=== PATIENT | male | born 1980 | race Caucasian/White ===

== ENCOUNTER 2016-09-14 | Emergency (ER) | payer BC ==
--- OUTSIDE RECORDS SUMMARY | 2016-09-14 00:20 | XMS REPORT | CCD ---
:1980 Author Name TRELLBARRERA JIMÉNEZ Shea Address [address] [facility] Unavailable [place], [place] [id number] Care Team Providers Name Role Phone RUFINO MONREAL Attending Physician Unavailable RUFINO MONREAL Er Physician 1 Unavailable Vital Signs Vital Sign Value Unit Date/Time Recent/Initial? Weight Measured 260 lbs 04/14/2015 14:31 Initial VS Height 75 in 04/14/2015 14:31 Initial VS BMI (Body Mass Index) 32.5 kg/m^2 04/14/2015 14:31 Initial VS BSA (Body Surface Area) 2.5 m^2 04/14/2015 14:31 Initial VS BP Systolic 194 mmHg 04/14/2015 14:31 Initial VS BP Diastolic 109 mmHg 04/14/2015 14:31 Initial VS Allergies Allergy Code Allergy Type Reaction Status LATEX {Clinical monitoring unavailable} 0 Allergy to substance Active No Known Drug Allergies 0 No known drug allergies Active Procedures Unknown or Not Available. History of Immunizations Unknown or Not Available. Problems Problem Code Start Date Resolved Date Status HERPETIC INFECT OF PENIS 35433 02/10/2012 Active CONTACT DERMATITIS 35780528 02/10/2012 Active DIARRHEA 16477709 02/10/2012 Active HEAVY CIGARETTE SMOKER (20-39 PER DAY) [id number] 02/10/2012 Active ADHD (ATTENTION DEFICIT HYPERACTIVITY 740360402 02/10/2012 Active DISORDER) Results Unknown or Not Available. Active Medications No Active Medications Medications Administered During Visit Unknown or Not Available. Encounters Encounter Diagnosis Diagnosis Code Start Date Sprain of unspecified site of left knee, initial encounter [id number] 04/14/2015 Social History Smoking Status Code Start Date End Date Current every day smoker [id number] Patient Decision Aids Unknown or Not Available. Discharge Instructions You were admitted to [facility] on 04/14/2015 with a principal diagnosis of Sprain of unspecified site of left knee, initial encounter. You were discharged from [facility] on 04/14/2015. Should you have any questions prior to discharge, please contact a member of your healthcare team. If you have left the hospital and have any questions, please contact your primary care physician. Chief Complaint and Reason For Visit Chief Complaint Date of Onset LT KNEE PAIN Function Status Unknown or Not Available. Plan of Care Unknown or Not Available. Referral/Transition of Care Unknown or Not Available.
--- OUTSIDE RECORDS SUMMARY | 2016-09-14 00:20 | XMS REPORT | CCD ---
:1980 Author Name MAJORBARRERA Shea Address [address] [facility] Unavailable [place], [place] [id number] Care Team Providers Name Role Phone GUILLE MCNAMARA Attending Physician Unavailable Vital Signs Unknown or Not Available. Allergies Allergy Code Allergy Type Reaction Status LATEX {Clinical monitoring unavailable} 0 Allergy to substance Active No Known Drug Allergies 0 No known drug allergies Active Procedures Unknown or Not Available. History of Immunizations Unknown or Not Available. Problems Problem Code Start Date Resolved Date Status HERPETIC INFECT OF PENIS 64754 02/10/2012 Active CONTACT DERMATITIS 89112290 02/10/2012 Active DIARRHEA 99501047 02/10/2012 Active HEAVY CIGARETTE SMOKER (20-39 PER DAY) 974759045 02/10/2012 Active ADHD (ATTENTION DEFICIT HYPERACTIVITY 596791679 02/10/2012 Active DISORDER) Results Unknown or Not Available. Active Medications Unknown or Not Available. Medications Administered During Visit Unknown or Not Available. Encounters Encounter Diagnosis Diagnosis Code Start Date Pain in left knee [id number] 04/20/2015 Social History Smoking Status Code Start Date End Date Current every day smoker [id number] Patient Decision Aids Unknown or Not Available. Discharge Instructions You were admitted to [facility] on 04/20/2015 with a principal diagnosis of Pain in left knee. You were discharged from [facility] on 04/20/2015. Should you have any questions prior to discharge, please contact a member of your healthcare team. If you have left the hospital and have any questions, please contact your primary care physician. Chief Complaint and Reason For Visit Chief Complaint Date of Onset KNEE PAIN Function Status Unknown or Not Available. Plan of Care Unknown or Not Available. Referral/Transition of Care Unknown or Not Available.
--- OUTSIDE RECORDS SUMMARY | 2016-09-14 00:20 | XMS REPORT | Continuity of Care Document ---
:1980 Author Organization [facility] ([facility]) Address [address] [place] [address] Phone [phone] Care Team Providers Name Role Phone Provider, No-Primary Care Primary Care Provider Unavailable Source Comments This disclosure is being made pursuant to the Care Everywhere program, applicable federal and state laws, and may not contain all informaitonavailable regarding this patient.[facility] ([facility]) Active Allergies and Adverse Reactions Allergen Noted Date Severity Reactions Comments Other Agent 10/21/2012 Pruritus Powder inside latex gloves Current Medications Prescription Sig. Disp. Refills Start Date End Date Status aspirin 325 mg EC Take 1 tablet 60 tablet 0 07/08/2016 Active tablet (325 mg total) by mouth daily. docusate (COLACE) 100 Take 1 capsule 60 capsule 1 07/08/2016 Active mg capsule (100 mg total) by mouth 2 times daily. hydrOXYzine pamoate Take 1-2 capsules 80 capsule 0 07/24/2016 Active (VISTARIL) 25 mg (25-50 mg total) capsule by mouth 4 times daily as needed (pain). HYDROcodone-acetaminop Take 1 tablet by 40 tablet 0 07/24/2016 Active hen 7.5-325 mg per mouth every 6 tablet hours as needed for Pain. HYDROcodone-acetaminop Take 1 tablet by 80 tablet 0 08/07/2016 Active hen 7.5-325 mg per mouth every 6 tablet hours as needed for Pain. 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 Closed fracture of unspecified part of lower end of femur 02/09/2003 Mechanical complication of internal orthopedic device, implant, and graft Most Recent Encounters Date Type Specialty Providers Description 09/10/2016 Office Visit Family Practice Pierce Charles, Subj: Upcoming Appt MD Reminder TinaDarius salgado Tracey, PA-C 09/02/2016 Hospital Encounter Emergency Medicine Dx: Closed fracture of unspecified part of lower end of femur (Primary Dx) 08/30/2016 Telephone Christiano Potts MD Chief Comp: Patient Concern 08/21/2016 Office Visit Issac Cr MD Subj: Upcoming Appt Reminder 08/07/2016 Office Visit Christiano Potts MD Dx: S/P left knee surgery (Primary Dx) 07/29/2016 Telephone Issac Cr MD Chief Comp: Medication Question 07/29/2016 Telephone Orthopaedic Malathi Lopez, Chief Comp: Other PA-C 07/24/2016 Office Visit Christiano Potts MD Dx: S/P left knee Malathi Lpoez, surgery (Primary Dx) PA-C 07/17/2016 Office Visit Issac Cr MD Chief Comp: Patient Reported Reason For Visit 07/17/2016 Office Visit Issac Walker MD Dx: Mechanical Malathi Lopez, complication of PA-C internal orthopedic device, implant, and graft, subsequent encounter (Primary Dx) 07/17/2016 Telephone Orthopaedic Malathi Lopez, PA-C 07/16/2016 Hospital Encounter Emergency Medicine Dx: Left leg pain (Primary Dx) 07/16/2016 Telephone Patient Services Libia Quinteros Chief Comp: Post-op RN Problem 07/16/2016 Nurse Triage Patient Services Libia Quinteros Chief Comp: Post -op RN Problem 07/12/2016 Telephone Tennille Lombardo Chief Comp: MD Dany Medications Refill 07/12/2016 Telephone Issac Cr MD Chief Comp: Follow-up 07/12/2016 Telephone Issac Cr MD Dx: S/P left knee surgery (Primary Dx) 07/11/2016 Telephone Orthopaedic Nieves Ortiz Chief Comp: Other RN 07/10/2016 Telephone Issac Cr MD Chief Comp: Post-op Problem 07/09/2016 Nurse Triage Ambulatory Surgery MeccaMalathi Ervin Chief Comp: Post-op K, RN Follow-up Call 07/08/2016 Pharmacy Visit 07/08/2016 Orders/Notes Issac Cr MD Dx: S/P knee surgery (Primary Dx) 07/08/2016 Surgery Ambulatory Surgery Issac Bear MD ARTHROSCOPY KNEE --Debridement and Microfracture 07/05/2016 Hospital Encounter Radiology Melody Zamora, Dx: Left knee pain 07/05/2016 Ancillary Orders Orthopedics Issac Bear MD Dx: Left knee pain (Primary Dx) 07/05/2016 Anesthesia Event Ambulatory Surgery Renny Gao CRNA 07/04/2016 Hospital Encounter Radiology Jf Diaz, Dx: Left knee pain Social History Tobacco Use Types Packs/Day Years Used Date Current Every Day Smoker Cigarettes 1 10 Smokeless Tobacco: Never Used Alcohol Use Drinks/Week oz/Week Comments Yes 1 Cans of beer 1 Standard drinks or equivalent Last Filed Vital Signs Vital Sign Reading Time Taken Blood Pressure 153/95 09/02/2016 11:02 AM INTERNET WEB[employer]STER Pulse 82 09/02/2016 11:02 AM INTERNET WE[employer] Temperature 36 C (96.8 F) 09/02/2016 11:02 AM INTERNET WEB[employer]STER Respiratory Rate 18 09/02/2016 11:02 AM INTERNET WEB[employer]STER Height 1.854 m (6' 0.99") 06/12/2016 11:58 AM INTERNET WEB[employer]STER Weight 115.9 kg (255 lb 8.2 oz) 07/08/2016 6:42 AM INTERNET WEB[employer]STER Body Mass Index 33.72 07/08/2016 6:42 AM INTERNET WEB[employer]STER Oxygen Saturation 98% 09/02/2016 11:02 AM INTERNET WEBMASTER Plan of Care Date Type Specialty Providers Description 09/17/2016 Appointment Orthopedics Issac Bear MD Subj: Upcoming Appt [address] [place] [address] [phone] (Fax) 09/18/2016 Appointment Christiano Potts MD Subj: Upcoming Appt [address] [place] [address] [phone] (Fax) 09/25/2016 Appointment Orthopaedic Abdirashid Leary MD Chief Comp: Patient [address] [place] [address] [phone] (Fax) 10/09/2016 Appointment Christiano Potts MD Chief Comp: Patient [address] [place] [address] [phone] (Fax) Health Maintenance Due Date Last Done Comments Hepatitis B Vaccine (1 of 3 - Primary Series) 1980 Tdap Vaccine 1993 Lipid Disorder Screening 2000 MMR Vaccine 2000 Td Vaccine 2000 Varicella Vaccine (1 of 2 - Adult - No Evidence of 2000 Immunity) Pneumococcal Vaccine (1 of 1 - PPSV23) 2001 Influenza Vaccine: Seasonal (#1) 01/29/2016 Procedures from Last 3 Months Procedure Name Priority Date/Time Associated Diagnosis Comments ABSTRACTED BY Routine 08/06/2016 3:40 Left knee pain Results for this BILLING STAFF - NW PM [employer] procedure are in the results section. ABSTRACTED BY Routine 07/22/2016 4:42 Left knee pain Results for this BILLING STAFF PM [employer] procedure are in the results section. ABSTRACTED BY Routine 07/16/2016 6:29 Closed fracture of Results for this BILLING STAFF - NW PM [employer] WE[employer] unspecified part of procedure are in lower end of femur the results section. HARDWARE REMOVAL 07/08/2016 8:00 Left knee pain FEMUR/HIP ADULT AM INTERNET WEBMASTER (DHS/DCS/BLADE PLATE) Case Notes C Arm; ACUFEX FAST FIX, meniscal stitcher, Fiberwire - long needles; chondral pick tray. Remvoal of distal femoral blade plate by Dr Valverde/Trauma TeamNeed the AO DHS removal tray from [facility]/cd; there is not a consent for Dr Valverde. Will need new cons ent/cd ARTHROSCOPY KNEE --Debridement and 07/08/2016 8:00 AM INTERNET WEBMASTER Left knee pain Microfracture Case Notes C Arm; ACUFEX FAST FIX, meniscal stitcher, Fiberwire - long needles; chondral pick tray. Remvoal of distal femoral blade plate by Dr Valverde/Trauma TeamNeed the AO DHS removal tray from [facility]/cd; there is not a consent for Dr Valverde. Will need new cons ent/cd Results from Last 3 Months LEFT FEMUR AP& LATERAL NOT INCL HIP (09/02/2016 11:54 AM)Only the most recent of2 resultswithin the time period is included. Impressions Findings / Impression: Negative for acute fracture or dislocation of the knee. Tracks from prior surgical hardware again noted in the distal femur with healed chronic fracture deformity. There is mild to moderate osteoarthritis of the knee joint, incompletely assessed on this nonweightbearing study. No large capsular distention. Narrative Procedure: LEFT FEMUR AP & LATERAL NOT INCL HIP Clinical Indication: Postsurgical pain Comparison: Left knee radiographs 07/16/2016, 06/12/2016 Procedure Note Deni, Incoming Imaging Results - FriSep 02, 2016 5:06 PM INTERNET WEBMASTER Procedure: LEFT FEMUR AP & LATERAL NOT INCL HIP Clinical Indication: Postsurgical pain Comparison: Left knee radiographs 07/16/2016, 06/12/2016 IMPRESSION Findings / Impression: Negative for acute fracture or dislocation of the knee. Tracks from prior surgical hardware again noted in the distal femur with healed chronic fracture deformity. There is mild to moderate osteoarthritis of the knee joint, incompletely assessed on this nonweightbearing study. No large capsular distention. OTHER PROCEDURE (08/06/2016 3:40 PM) Narrative Christiano Valverde MD 08/06/20163:40 PM Unlisted Procedure Additional Procedure Detail: Hardware removal Post-Op Procedure Note Operation/Procedure: Procedure(s) (LRB): ARTHROSCOPY KNEE --Debridement and Microfracture (Left) HARDWARE REMOVAL FEMUR/HIP ADULT (DHS/DCS/BLADE PLATE) (Left) General Information: Date: 07/08/16 Time: 0800 Location: [facility] OR Room: [facility] OR Service: Orthopaedics Log ID: [id number] Surgeon: Surgeon(s) and Role: Panel 1: * Issac Bear MD - Primary * Joy Forbes MD - Resident - Assisting * Ethan Nowak MD - Resident - Assisting Panel 2: * Christiano Valverde MD - Primary * Ethan Nowak MD - Resident - Assisting * Eliecer Duran MD - Resident - Assisting Staff Information: Scrub Nurse: Mis Marley, oncology nurse navigator Nurse: Mis Marley, BALAJI; Leena Mayfield RN Sharepoint Engineer- Scrub: Ana Lilia Mendoza Anesthesia: General Findings: No unexpected findings, see below. Blood Loss: less than 50 ml Implants: Implant Name Type Inv. Item Serial No. Steward/Stewardess Dining Room Lot No. LRB No. Used Action Blade PlateLeft 1 Explanted Screws x 6 Left 1 Explanted Specimens: * No specimens in log * Complications: None; patient tolerated the procedure well. Condition: PACU - hemodynamically stable. Return to the OR planned in the next 30 days? No Readmission planned in the next 30 days? No BMI=33.72 kg/(m^2) (as of 06/12/16) Operative Report Completion Pre-op Diagnosis: * Left knee pain [M25.562] Post-op Diagnosis: Hardware irritation left distal femur blade plate Procedure: Removal of hardware Indications/Procedure Details: Patient is a 35-year-old male who is several years out from a left distal femur osteotomy with a blade plate by Dr. Valverde. He has developed progressive left knee pain and was seen by Dr. Bear. Dr. Bear recommended a knee arthroscopy as well as hardware removal. Informed consent was obtained. He understood the risks of surgery and elected to proceed. Patient's left knee was marked. He was brought back to the operating room and Dr. eBar's team performed his diagnostic arthroscopy. This is dictated in a separate note. Following the arthroscopy, we recreated his lateral distal femoral incision. The IT band was split longitudinally in line with his incision. The vastus lateralis was elevated anteriorly. This exposed the plate. The screws were sequentially removed with the AO 4.5 mm screwdriver. The extraction device was then secured to the distal aspect of the blade plate near the blade and we carefully back-slapped blade plate. This removed partially. We then used a combination of Bella and got his in between the bone and the sideplate sequentially levered the blade out. This worked well. We took fluoroscopic views to ensure no fractures. The hardware was sent for sterilization. The wound is thoroughly irrigated. It was closed in 3 layers. A sterile soft dressing was applied. He was awakened from general anesthesia and tolerated the procedure without any complications. Disposition: Outpatient Attending Attestation: Issac Bear MD was present for the entire procedure. Ethan Nowak MD OR CASE (07/22/2016 4:42 PM) Narrative Issac Bear MD 07/22/20164:42 PM OR CASE: ARTHROSCOPY KNEE, HARDWARE REMOVAL FEMUR/HIP ADULT (DHS/DCS/BLADE PLATE) Additional Procedure Detail: Left knee arthroscopy with loose body removal and microfracture to the trochlea Post-Op Procedure Note Operation/Procedure: Procedure(s) (LRB): ARTHROSCOPY KNEE --Debridement and Microfracture (Left) HARDWARE REMOVAL FEMUR/HIP ADULT (DHS/DCS/BLADE PLATE) (Left) General Information: Date: 07/08/16 Time: 0800 Location: [facility] OR Room: [facility] OR 5 Service: Orthopaedics Log ID: [id number] Surgeon: Surgeon(s) and Role: Panel 1: * Issac Bear MD - Primary * Joy Forbes MD - Resident - Assisting * Ethan Nowak MD - Resident - Assisting Panel 2: * Christiano Valverde MD - Primary * Ethan Nowak MD - Resident - Assisting * Eliecer Duran MD - Resident - Assisting Staff Information: Scrub Nurse: Mis Marley, oncology nurse navigator Nurse: Mis Marley RN; Leena Mayfield RN Sharepoint Engineer- Scrub: Ana Lilia Mendoza Anesthesia: General Findings: No unexpected findings, see below. Blood Loss: 75 cc Implants: Implant Name Type Inv. Item Serial No. Steward/Stewardess Dining Room Lot No. LRB No. Used Action Blade PlateLeft 1 Explanted Screws x 6 Left 1 Explanted Specimens: * No specimens in log * Complications: None; patient tolerated the procedure well. Condition: PACU - hemodynamically stable. Return to the OR planned in the next 30 days? No Readmission planned in the next 30 days? No BMI=33.72 kg/(m^2) (as of 06/12/16) Operative Report Completion Pre-op Diagnosis: * Left knee pain [M25.562] Post-op Diagnosis: Hardware irritation left distal femur Procedure performed: Removal of left distal femur blade plate Indications/Procedure Details: Kevin Villalobos is a 35 y.o. male With persistent pain and increasing symptoms over last several months involving his left knee. He has a history of an bad distal femoral fracture fixed 15 years ago with a blade plate. His and are intermittent lateral sided knee pain. He began having more interarticular type knee pain. He temporarily responded to an intra-articular injection. He is off her knee arthroscopy with associated hardware removal by Dr. Valverde's team. He wished to proceed a consent form was reviewed and signed after risks and benefits were reviewed in detail. Kevin was identified in the preoperative area. His left knee was marked. He is brought to the operating room and given a general anesthetic. All pressure points were checked and padded. The left lower extremity was prepped and draped in the usual fashion and preoperative IV antibiotics were given. A multidisciplinary timeout was performed. Standard anterior portals were used. A superior medial outflow needle was placed. Diagnostic arthroscopy revealed both medial and lateral menisci to be normal. His medial compartment had normal articular cartilage. The lateral compartment had grade 2 cracking and fraying of the tibial plateau. The lateral femoral condyle was normal. There were multiple cartilaginous loose bodies floating around within the suprapatellar pouch. 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 At the central aspect of the trochlea the very edge of the blade plate could be visualized the cartilage had chipped away. All the cartilage loose bodies were debrided with the shaver. The trochlear defect was approximately 20 x 25 mm in size. Calcific cartilage layer was removed with a curette and a shaver. The edges of the lesion were stabilized. A microfracture was performed. There was good backbleeding and a lesion on turning down upon. At this point we turned the case over to Dr. Valverde and his team for hardware removal. Postop plan will be for partial weightbearing with a knee brace locked in extension for ambulation for 6 weeks. We'll allow gradual Range of motion and use of a continuous passive motion machine. We will use a protocol for a patella or trochlea microfracture procedure. Disposition: Outpatient Attending Attestation: Issac Bear MD was present for the entire procedure. Ethan Nowak MD LEFT KNEE AP& LATERAL (07/16/2016 7:30 PM) Impressions Findings / Impression: Left knee: Surgical lawrence over the lateral aspect of the lower thigh. Postprocedural changes of interval removal of plate and screws. No definite acute displaced fractures or dislocations. Mild soft tissue swelling. Minimal joint capsule distention. Left femur: Again seen are the postsurgical changes at the left lower femur. No definite acute displaced fractures or dislocations. Mild soft tissue swelling. Mild periosteal reaction is seen over the lateral aspect of the lower femur. Narrative Procedure: LEFT FEMUR AP & LATERAL NOT INCL HIP, LEFT KNEE AP & LATERAL Clinical Indication: Recent removal of hardware, now with increasing pain and swelling Comparison: Radiographs 06/12/2016 Procedure Note Deni, Incoming Imaging Results - FriJul 17, 2016 8:41 AM INTERNET WEB[employer]STER Procedure: LEFT FEMUR AP & LATERAL NOT INCL HIP, LEFT KNEE AP & LATERAL Clinical Indication: Recent removal of hardware, now with increasing pain and swelling Comparison: Radiographs 06/12/2016 IMPRESSION Findings / Impression: Left knee: Surgical lawrence over the lateral aspect of the lower thigh. Postprocedural changes of interval removal of plate and screws. No definite acute displaced fractures or dislocations. Mild soft tissue swelling. Minimal joint capsule distention. Left femur: Again seen are the postsurgical changes at the left lower femur. No definite acute displaced fractures or dislocations. Mild soft tissue swelling. Mild periosteal reaction is seen over the lateral aspect of the lower femur. OTHER PROCEDURE (07/16/2016 6:29 PM) Narrative Issac Bear MD 07/16/20166:29 PM Unlisted Procedure Additional Procedure Detail: Hardware removal left distal femur Post-Op Procedure Note Operation/Procedure: Procedure(s) (LRB): ARTHROSCOPY KNEE --Debridement and Microfracture (Left) HARDWARE REMOVAL FEMUR/HIP ADULT (DHS/DCS/BLADE PLATE) (Left) General Information: Date: 07/08/16 Time: 0800 Location: [facility] Room: [place] [address] Service: Orthopaedics Log ID: [id number] Surgeon: Surgeon(s) and Role: Panel 1: * Issac Bear MD - Primary * Joy Forbes MD - Resident - Assisting * Ethan Nowak MD - Resident - Assisting Panel 2: * Christiano Valvered MD - Primary * Ethan Nowak MD - Resident - Assisting * Eliecer Duran MD - Resident - Assisting Staff Information: Scrub Nurse: Mis Marley, oncology nurse navigator Nurse: Mis Marley RN; Leena Mayfield RN Sharepoint Engineer- Scrub: Ana Lilia Mendoza Anesthesia: General Findings: No unexpected findings, see below. Blood Loss: 75 cc Implants: Implant Name Type Inv. Item Serial No. Steward/Stewardess Dining Room Lot No. LRB No. Used Action Blade PlateLeft 1 Explanted Screws x 6 Left 1 Explanted Specimens: * No specimens in log * Complications: None; patient tolerated the procedure well. Condition: PACU - hemodynamically stable. Return to the OR planned in the next 30 days? No Readmission planned in the next 30 days? No BMI=33.72 kg/(m^2) (as of 06/12/16) Operative Report Completion Pre-op Diagnosis: * Left knee pain [M25.562] Post-op Diagnosis: Hardware irritation left distal femur blade plate Procedure: Removal of left distal femur blade plate Indications/Procedure Details: INDICATIONS: Kevin Villalobos is a 35-year-old male with left knee pain.He had a previous distal femoral physis fracture as a child which went on to malunion.Dr. Valverde performed a corrective osteotomy and held this in place with a blade plate to the distal femur. He has developed progressive knee pain and is indicated for a left knee arthroscopy as well as left distal femur blade plate removal.This was divided into two procedures (details below). The patient signed informed consent.He understood the risks of surgery and elected to proceed. DETAILS OF PROCEDURE: The patient was brought to the preoperative holding area.His left leg was marked.He was brought to the operating room and placed supine on the operating table.The left leg was prepped and draped in standard sterile fashion.A multidisciplinary time-out was performed.Preoperative antibiotics were given.At this point, Dr. Bear and his team performed a left knee arthroscopy (please see separate procedure note for the details of this).Once the left knee arthroscopy was performed, Dr. Valverde's team came in for the blade plate removal.We incised through his previous lateral distal femoral scar.The IT band was split and the blade plate was exposed.We exposed the entirety of the plate proximally and distally.The proximal portion of the blade plate was encased in bone, and an AO chisel was used to safely remove this bony overgrowth.Once the bony overgrowth was removed, we exposed down to the screw heads. Seven screws were sequentially removed without difficulty. Following this, the AO blade plate clamp was securely fashioned to the distal aspect of the blade plate near its shoulder, and we used the back slapper to remove the blade plate.The blade plate was removed without incident.We obtained fluoroscopic images to ensure there was no femur fracture, which there was not.The wound was then thoroughly irrigated and the IT band was closed with 0 Vicryl sutures, the subcutaneous layer with 2-0 Vicryl sutures, and the skin was stapled.The patient tolerated the procedure well and there were no complications noted. He will be partial weightbearing with crutches.He will follow up with Dr. Bear in 2 weeks for staple removal and evaluation of the knee.He will follow up with Dr. Valverde in about 3 months with repeat knee x-rays. Disposition: Outpatient Attending Attestation: Issac Bear MD was present for bradley portions of the procedure defined as, and was immediately available for the remainder of the procedure. The bradley portions are defined as:Hardware removal. Ethan Nowak MD FLUORO C-ARM: MORE THAN ONE HOUR (07/08/2016 11:00 AM)MRI LEFT KNEE WO CONTRAST ([id number]) (07/05/2016 7:51 PM)Only the most recent of2 resultswithin the time period is included. Impressions IMPRESSION: 1. Medial and lateral menisci are grossly intact. 2. The anterior and posterior cruciate ligaments are intact. 3. The articular cartilage is grossly intact. Marrow edema within the inferior patella could suggest deep cartilaginous lesion obscured by hardware artifact versus contusion. 4. Small Cervantes's cyst. Narrative Procedure: MRI LEFT KNEE WO CONTRAST ([id number]), MRI LEFT KNEE WO CONTRAST ([id number]) INDICATION: Evaluate for cartilage defect. Left knee pain. TECHNIQUE: Multiplanar multisequence magnetic resonance imaging of the left knee was performed without contrast on 07/04/2016. Due to large field of view and extensive susceptibility artifact from orthopedic hardware the patient was brought back at no additional charge for repeat imaging utilizing a smaller [id number] and additional techniques to attempt to reduce metallic artifact on 07/05/2016. COMPARISON: Bilateral knee radiographs 06/12/2016. FINDINGS: Prominent signal void along the distal femur and anterior knee joint secondary to metallic artifact. Menisci: Medial and lateral menisci are intact. Ligaments and tendons: The anterior and posterior cruciate ligaments are intact. There is mild thickening of the proximal medial collateral ligament without associated edema suggesting chronic injury or postsurgical change. The lateral collateral ligament, biceps femoris tendon, conjoined tendon, and iliotibial band are intact. There is a small amount of increased fluid within distal quadriceps tendon which may represent tendinosis. Joint: Mild to moderate joint effusion. The patellar articular cartilage is limited in assessment inferiorly due to susceptibility artifact. The cartilage appears grossly intact, however there is edema within the patella at the median ridge which may suggest the presence of cartilage defects which is not well evaluated on this study. This may be explained by contusion. The cartilage of the medial and lateral compartments shows no focal defect. There is a 12 x 8 mm region of cartilage signal abnormality within the medial aspect of the lateral tibial plateau without superimposed cartilage defect. Bone: Marrow signal of the distal femur and patella is limited due to artifact from orthopedic hardware. Aside from the degenerative marrow signal changes noted above the marrow signal is normal. Soft tissues: small Cervantes's cyst. Procedure Note Deni, Incoming Imaging Results - FriJul 08, 2016 5:47 PM INTERNET WEBMASTER Procedure: MRI LEFT KNEE WO CONTRAST ([id number]), MRI LEFT KNEE WO CONTRAST ([id number]) INDICATION: Evaluate for cartilage defect. Left knee pain. TECHNIQUE: Multiplanar multisequence magnetic resonance imaging of the left knee was performed without contrast on 07/04/2016. Due to large field of view and extensive susceptibility artifact from orthopedic hardware the patient was brought back at no additional charge for repeat imaging utilizing a smaller [id number] and additional techniques to attempt to reduce metallic artifact on 07/05/2016. COMPARISON: Bilateral knee radiographs 06/12/2016. FINDINGS: Prominent signal void along the distal femur and anterior knee joint secondary to metallic artifact. Menisci: Medial and lateral menisci are intact. Ligaments and tendons: The anterior and posterior cruciate ligaments are intact. There is mild thickening of the proximal medial collateral ligament without associated edema suggesting chronic injury or postsurgical change. The lateral collateral ligament, biceps femoris tendon, conjoined tendon, and iliotibial band are intact. There is a small amount of increased fluid within distal quadriceps tendon which may represent tendinosis. Joint: Mild to moderate joint effusion. The patellar articular cartilage is limited in assessment inferiorly due to susceptibility artifact. The cartilage appears grossly intact, however there is edema within the patella at the median ridge which may suggest the presence of cartilage defects which is not well evaluated on this study. This may be explained by contusion. The cartilage of the medial and lateral compartments shows no focal defect. There is a 12 x 8 mm region of cartilage signal abnormality within the medial aspect of the lateral tibial plateau without superimposed cartilage defect. Bone: Marrow signal of the distal femur and patella is limited due to artifact from orthopedic hardware. Aside from the degenerative marrow signal changes noted above the marrow signal is normal. Soft tissues: small Cervantes's cyst. IMPRESSION
--- NOTE | 2016-09-14 00:27 | ERNOTE ---
Medical Problem HPI - General Time Seen by Provider: 09/14/16 00:09 Source: patient, police - Immun/Allergies/Home Medications Allergies/Adverse Reactions: Allergies No Known Drug Allergies Allergy (Verified 09/14/16 00:24) Home Medications: HOME MEDICATIONS ALPRAZolam [Xanax] 1 mg PO PRN PRN 09/14/16 [Last Taken 09/13/16 23:15 50-60] Hydrocodone/Acetaminophen [Paulina 5-325 Tablet] 1 each PO PRN PRN 09/14/16 [Last Taken 09/13/16 19:30 3 tablets] Meloxicam 7.5 mg PO HS 09/14/16 [Last Taken Unknown] - History of Present History Narrative: Pt is brought in by EMS for having taken Xanax, 1mg, 60 tablets, 25 minutes ago , in an attempt to kill himself. He is extremely somnolent and denies use of Tylenol or ETOH at this time Review of Systems - Review of Systems Constitutional: Present: no symptoms reported EYE: Present: no symptoms reported ENT: Present: no symptoms reported Respiratory: Present: no symptoms reported Cardiology: Present: no symptoms reported Gastrointestinal/Abdominal: Present: no symptoms reported Genitourinary: Present: no symptoms reported Musculoskeletal: Present: other - pt complains of left foot itching. Skin: Present: no symptoms reported Neurological: Present: no symptoms reported Physical Exam - Physical Exam General Appearance: Present: wd/wn, alert - pt is groggy and somnolent and states he did this to commit suicide as he believed that suicide is legal in this state. this examiner educated him to the contrary Eye Exam: Abnormal pupil: bilateral - both pupils are equal but sluggish in reaction Ears, Nose, Throat: Present: normal ENT inspection Neck: Present: normal inspection, nontender, supple Respiratory: Present: no respiratory distress, normal breath sounds, no accessory muscle use, chest nontender, lungs clear Cardiovascular/Chest: Present: regular rate, rhythm, no murmur, normal peripheral pulses Gastrointestinal/Abdominal: Present: normal bowel sounds, nontender, nondistended, soft Back Exam: Present: normal inspection, normal range of motion Extremity Exam: Present: normal inspection, non-tender, normal range of motion Neurological Exam: Present: other - somnolent but appropriate. ED Progress - Results and Orders Patient's Lab Results:: I have reviewed the patient's lab results. - Vital Signs Patient's Vital Signs:: I have reviewed the patient's vital signs. Plan - Plan Plan: This patient took 60, 1mg Xanax tablets in addition to three Norcos approximately one hour prior to presentation to the ED. He is extremely somnolent and becoming more so during his stay here. I am being told that we do not have any ICU beds here in this facility tonight. I called [facility] and consulted with Dr. Garcia who accepted the patient to their facility. Prior to transport in anticipation of future condition of patient, This examiner made the decision to intubate the patient to protect the airway in transport. Pt was successfully intubated by this examiner using glidescope in the presence of our anesthesia expert. Tube placement was confirmed by Xray. PT stable for transport at this time Departure - Departure Clinical Impression: Deliberate medication overdose Qualifiers: Encounter type: initial encounter Qualified Code(s): T50.902A - Poisoning by unspecified drugs, medicaments and biological substances, intentional self-harm , initial encounter Disposition: [facility] Condition: Serious
[2016-09-14] MEDS ORDERED: NALOXONE HCL 1 MG/1 ML SYRG IV ONE (00:32)
[2016-09-14] MEDS ORDERED: NALOXONE HCL 1 MG/1 ML SYRG ONE (00:32)
[2016-09-14 00:37] LABS: Hematocrit 43.5 % (42.0-52.0); Hemoglobin 14.2 gm/dL (13.5-18.0); Mean Cell Volume 94.6 fl (78-100); Mean Corpuscular Hemoglobin 30.9 pg (27-31); Mean Corpuscular Hgb Conc 32.6 g/dl (32-36); Mean Platelet Volume 9.8 fl (6.0-9.5); Neutrophil # 9.6 K/mm3 (1.3-6.0); Platelet Count 346 K/mm3 (150-450); Red Cell Distribution Width 13.4 % (11.5-14.0); White Blood Count 12.6 K/mm3 (4.0-10.5)
[2016-09-14 00:41] LABS: Urine Bilirubin Negative (NEGATIVE); Urine Blood Negative /ul (NEGATIVE); Urine Ketone Negative (NEGATIVE); Urine Nitrite Negative (NEGATIVE); Urine Protein Negative (NEGATIVE); Urine Specific Gravity 1.015 SP.GR. (1.005-1.030); Urine Urobilinogen Normal (NORMAL); Urine pH 6.5 pH (5.0-7.0)
[2016-09-14] MEDS ORDERED: NORMAL SALINE 1,000 ML IV ONE (00:46)
[2016-09-14 00:49] LABS: Urine Appearance Clear; Urine Color Yellow
[2016-09-14 00:50] LABS: Urine Bacteria None Seen; Urine RBC None Seen /hpf (0-5); Urine WBC None Seen /hpf (0-5)
[2016-09-14] MEDS ORDERED: PROPOFOL VIAL IV ONE ×4 (00:51→01:32)
[2016-09-14] MEDS ORDERED: ROCURONIUM BROMIDE 10 MG/ML VIAL IV ONE ×3 (00:53→01:35)
[2016-09-14 01:05] LABS: Cocaine Ur Negative (NEGATIVE); Urine Barbiturate Negative (NEGATIVE); Urine PCP Negative (NEGATIVE); Urine THC Negative (NEGATIVE)
[2016-09-14 01:06] LABS: Urine Benzodiazepines Positive (NEGATIVE); Urine Opiates Positive (NEGATIVE)
[2016-09-14 01:07] LABS: ALT 31 U/L (19-67); AST 18 U/L (0-48); Albumin * 4.2 gm/dl (3.4-5.0); Alkaline Phosphatase * 70 U/L (50-170); Anion Gap 15.1 mmol/L (6.8-13.8); BUN/Creatinine Ratio 16.5 (9.0-21.6); Bilirubin, Total 0.4 mg/dL (0.0-1.1); Blood Urea Nitrogen 17 mg/dL (6-23); Ca. Corrected For Albumin 8.7 mg/dL (8.4-10.2); Calcium * 9.2 mg/dL (7.9-10.9); Chloride 106 mmol/L (97-106); Glucose * 110 mg/dL (70-110); Potassium 4.1 mmol/L (3.4-4.6); Salicylate 4.7 mg/dL (2.8-20.0); Sodium 144 mmol/L (132-142); Total Protein 7.7 gm/dL (6.2-8.2)
[2016-09-14] MEDS ORDERED: RACEPINEPHRINE HCL 0.5 ML VIAL IH ONE (01:14)
--- NOTE | 2016-09-14 01:17 | OR ---
Anesthesia Procedure Note - Anesthesia Procedure Note Date of Service: 09/14/16 Narrative: Vital Signs - Last Taken Temp 36.8 C 09/14/16 00:38 Pulse 66 09/14/16 00:59 Resp 26 H 09/14/16 00:59 BP 114/80 09/14/16 00:59 Pulse Ox 99 09/14/16 00:59 O2 Oxygen Delivery Method Ambu-Bag 09/14/16 01:06 Procedure: Endotracheal intubation Indication: Recent overdose on benzodiazepine, decreasing level of consciousness , pending transport via ambulance. Brief history: The patient presented to emergency room status post overdose within the hour and has been observed as a decreasing level of consciousness since admission. He is currently exchanging and has a SaO2 of 99%, he is also conversing in a rather rambling fashion. The emergency department physician voices concern for airway on transport, thus requesting intubation prior to such procedure. Brief description of procedure: The patient was preoxygenated with 100% oxygen per Ambu bag. Propofol 100 mg was given IV followed by 3 mg of rocuronium and a second 100 mg of propofol followed by 100 mg of succinyl choline. The patient was then ventilated with 100% oxygen followed by intubation with the use of the glide scope using a #3 glide scope blade. Visualization was easy and the oropharynx was clear. A #8 endotracheal tube was passed and the cuff inflated. Bilateral breath sounds were noted and positive CO2 on chemical strip was also noted. Endotracheal tube was secured in place by a commercial device. Anticipating transport with the endotracheal tube in place and additional 47 mg of rocuronium was given intravenously. Patient continued to be ventilated and demonstrated a 100% oxygen saturation. The procedure was performed without incident and the patient was being ventilated by the respiratory therapist status post procedure.
[2016-09-14 02:24] VITALS: BP 159/125
== END 2016-09-14 01:36 | disposition short-term general hospital (02) ==
LOC: ER
PROC: 0T9B70Z Drainage of Bladder with Drainage Device, Via Natural or Artificial Opening (ICD-10-PCS; principal; 2016-09-14)
PROC: 0BH17EZ Insertion of Endotracheal Airway into Trachea, Via Natural or Artificial Opening (ICD-10-PCS; 2016-09-14)
PROC: 4A033R1 Measurement of Arterial Saturation, Peripheral, Percutaneous Approach (ICD-10-PCS; 2016-09-14)
DX: T42.4X2A Poisoning by benzodiazepines, intentional self-harm, initial encounter (principal); R40.0 Somnolence
CPT/HCPCS: 31500; 36415; 36600; 51702; 71010; 80053; 80307; 80320; 81001; 82803; 85025; 93005; 96374; 96375; 99283; G0480